=== PATIENT | female | born 2000 | race American Indian/Alaskan Native ===

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

== ENCOUNTER 2021-01-09 00:04 | Outpatient (CLI) | payer MEDICAID ==
[2021-01-09 00:33] VITALS: BP 121/75
[2021-01-09] MEDS ORDERED: LACTATED RINGERS 1,000 ML IV ONE ×2 (00:46→03:50)
[2021-01-09 01:57] LABS: Bacteria,Urine 1+ /HPF (Negative); Bilirubin,Urine NEG (Negative); Blood,Urine NEG (Negative); Color,Urine Yellow (Yellow); Mucus,Urine FEW /HPF; Protein,Urine <15 mg/dL mg/dL (Negative)
[2021-01-09] MEDS ORDERED: TERBUTALINE 1 MG/1 ML INJ SUB-Q ONE (03:50)
[2021-01-09] MEDS ORDERED: BETAMET ACET/BETAMET NA PH 6 MG/ML INJ 5 ML MDV IM SCH (04:00)
--- NOTE | 2021-01-09 08:08 | Ultrasound Report ---
ULTRASOUND OBSTETRIC LIMITED ULTRASOUND BIOPHYSICAL PROFILE INDICATION / CLINICAL INFORMATION: well being . Twin gestation Clinical Gestational Age (GA) in weeks, days: 34, 2 TECHNIQUE: Transabdominal. COMPARISON: None available. FINDINGS: Twin intrauterine gestation. Twin A BREATHING MOVEMENT = 2 GROSS BODY MOVEMENT = 2 TONE = 2 QUALITATIVE AMNIOTIC FLUID VOLUME = 2 TOTAL BIOPHYSICAL SCORE = 8/8 HEART RATE (beats per minute): 151 Twin B BREATHING MOVEMENT = 2 GROSS BODY MOVEMENT = 2 TONE = 2 QUALITATIVE AMNIOTIC FLUID VOLUME = 2 TOTAL BIOPHYSICAL SCORE = 8/8 HEART RATE (beats per minute): 133 AMNIOTIC FLUID INDEX (cm) = 5.2 cm representing largest vertical pocket PRESENTATION: Cephalic. Twin A and twin B. ADDITIONAL FINDINGS: None. IMPRESSION: 1. Twin A and twin B Biophysical Score = 8/8 2. No acute sonographic abnormality. Signer Name: Little Mcdermott MD Signed: 01/09/2021 6:55 AM Workstation Name: [id number]
== END 2021-01-09 08:40 | disposition home or self-care (01) ==
LOC: TRG 00:04 → APU 00:12 → TRG 08:40
PROVIDERS: ATTEND Obstetrics & Gynecology
DX: O26.893 Other specified pregnancy related conditions, third trimester (principal); R10.9 Unspecified abdominal pain; Z3A.34 34 weeks gestation of pregnancy
CPT/HCPCS: 59025; 76815; 76819; 81001; 96361; 96365; 96372; J0690; J0702; J3105; J7120; 96360